=== PATIENT | male | born 1940 | race Caucasian/White ===

== ENCOUNTER 2020-02-06 07:57 | Emergency (ER) | payer OTHER, SELFPAY ==
[2020-02-06 08:00] VITALS: BP 141/80; PULSE 64; RESP 16; TEMP 36; O2SAT 100
--- NOTE | 2020-02-06 08:08 | ED.SKABFB ---
HPI - Skin/Abscess/Foreign Bdy General Chief complaint: Skin/Abscess/Foreign Body Stated complaint: boil on back Time Seen by Provider: 02/06/20 08:04 Source: patient Mode of arrival: Ambulatory Limitations: no limitations History of Present Illness HPI narrative: Patient is an 79-year-old male who presents with boil on his left back. He says it initially started out as a pimple he thinks is been there for about a month's he and his have been trying to get rid of it and poking it with a needle and had any alcohol to it. He says over the last 1 week it has gotten bigger and worse and draining pus. He denies any fever or chills. He has never had anything like this before. MD complaint: abscess/boil Related Data Home Medications Medication Instructions Recorded Confirmed ASPIRIN CHEW - 81 mg PO DAILY #0 02/20/07 (ASPIRIN) Metoprolol Tartrate (Lopressor) 0 PO BID #0 02/20/07 Tamsulosin Hydrochloride (Flomax) 0 mg PO DAILY #0 02/20/07 [ALEVE] BID #0 02/20/07 [PREVACOL] DAILY #0 02/20/07 Previous Rx's Medication Instructions Recorded sulfamethoxazole-trimethoprim 1 tab PO BID #14 tab 02/06/20 [Bactrim DS] Allergies Allergy/AdvReac Type Severity Reaction Status Date / Time No Known Drug Allergies Allergy Verified 02/06/20 08:04 Review of Systems Review of Systems Narrative: GENERAL: Denies chills,fever HEENT: Denies throat pain RESPIRATORY: Denies dyspnea, cough, wheezing CARDIOVASCULAR: Denies chest pain, palpitations GASTROINTESTINAL: Denies nausea, vomiting MUSCULOSKELETAL: Denies extremity pain, injury SKIN: See HPI NEUROLOGIC: Denies weakness, dizziness, headache, numbness 8 point review of systems is negative except for those stated above and HPI Patient History Medical History Coronary artery disease (Acute) Hyperlipidemia (Acute) Hypertension (Acute) Social History Smoking Status: Former smoker Smoking Status: Former smoker alcohol intake frequency: 0-2 drinks per day Substance Use Type: does not use Exam Initial Vital Signs Initial Vital Signs: Vital Signs Temperature 96.8 F L 02/06/20 08:00 Pulse Rate 64 02/06/20 08:00 Respiratory Rate 16 02/06/20 08:00 Blood Pressure 141/80 H 02/06/20 08:00 Pulse Oximetry 100 02/06/20 08:00 GENERAL: Alert pleasant elderly male CARDIOVASCULAR: peripheral pulses in tact, cap refill <2 sec RESPIRATORY: No respiratory distress, speaks in full sentences without difficulty [ABDOMEN: Soft, nontender, no guarding or rebound] EXTREMITIES: Normal range of motion, no clubbing or edema. Neurovascularly intact NEUROLOGICAL: Cranial nerves II through XII grossly intact. Normal gait and speech. SKIN: Abscess 2 cm x 1 cm left back thoracic area. He does have some induration and there is some drainage at the site Procedures Abscess I/D I&D #1: Site: back Side (if applicable): left Local Anesthetic: lidocaine 1% and with epi Amount of anesthesia used (mL): 3 Technique: incised with #11 blade Amount of fluid expressed (mL): 0 Irrigation: No Packing used?: none Complications: pain Course Orders Ordered: ED Orders 02/06/20 08:05 Wound Culture and Gram Stain Stat Discontinued Medications Lidocaine/Epinephrine (Xylocaine 1% W/Epi) 1 ml SUBCUT NOW ONE Stop: 02/06/20 08:08 Last Admin: 02/06/20 08:11 Dose: 1 ml Documented by: BTONER Vital Signs Vital signs: Vital Signs - 8 hr 02/06/20 08:00 Temperature 96.8 F L Pulse Rate 64 Respiratory Rate 16 Blood Pressure 141/80 H Pulse Oximetry 100 MDM - Skin/Abscess/Foreign Bdy MDM Narrative Medical decision making narrative: Unfortunately there was no pus. Bleeding was controlled. Instructed patient about warm compresses keeping it clean and dry and have given a prescription for antibiotic Discharge Plan Departure Patient Disposition: Home Clinical Impression: Abscess of skin Qualifiers: Site of cutaneous abscess: trunk Site of cutaneous abscess of trunk: back Qualified Code(s): L02.212 - Cutaneous abscess of back [any part, except buttock] Discharge Date/Time: 02/06/20 08:40 Instructions: DI for Skin Abscess Activity Restrictions/Additional Instructions: *You have been diagnosed with skin abscess *What to do: Recommend warm compresses keep clean and dry with soap and monitor. This may need to be opened at a later date. However hopefully this clears with antibiotics *Continue to take medications as directed Bactrim 1 tablet twice a day for 7 days *Follow up with your primary care provider in 2-3 days *Return to ER if you should have increasing swelling, increasing drainage, fever or any new, worsening or concerning symptoms Prescriptions: New sulfamethoxazole-trimethoprim [Bactrim DS] 800-160 mg tablet 1 tab PO BID Qty: 14 RF: 0 No Action Metoprolol Tartrate (Lopressor) 0 PO BID Qty: 0 RF: 0 [PREVACOL] DAILY Qty: 0 RF: 0 ASPIRIN CHEW - (ASPIRIN) 81 mg PO DAILY Qty: 0 RF: 0 Tamsulosin Hydrochloride (Flomax) 0 mg PO DAILY Qty: 0 RF: 0 [ALEVE] BID Qty: 0 RF: 0
[2020-02-06] MEDS: LIDOCAINE 1% W/EPI 1 ML SUBCUT (08:11)
== END 2020-02-06 08:40 | disposition home or self-care (01) ==
PROVIDERS: Emergency Provider Emergency Medicine
DX: L02.212 Cutaneous abscess of back [any part, except buttock and flank] (principal)
CPT/HCPCS: 10060; 87070; 87077; 87147; 87186; 87205; 99281; 99283

== ENCOUNTER 2020-02-25 07:29 | Emergency (ER) | payer OTHER, SELFPAY ==
[2020-02-25 07:38] VITALS: BP 146/76; PULSE 55; RESP 16; TEMP 36.2; O2SAT 100; BMI 27.2
--- NOTE | 2020-02-25 07:54 | ED_ITS ---
HPI - Skin/Abscess/Foreign Bdy General Chief complaint: Skin/Abscess/Foreign Body Stated complaint: abcess on back Time Seen by Provider: 02/25/20 07:45 Source: patient Mode of arrival: Ambulatory Limitations: no limitations History of Present Illness HPI narrative: Patient seen here February 06, 2020 for the same complaint of abscess left scapular area. Placed on Bactrim which has helped the pain but still has drainage from the wound. No fever chills. Has not expanded in size of the wound. Patient uncertain tetanus status. Will give here. Changing antibiotic to doxycycline. Will give referral to General surgery for follow-up. Related Data Home Medications Medication Instructions Recorded Confirmed ASPIRIN CHEW - 81 mg PO DAILY #0 02/20/07 (ASPIRIN) Metoprolol Tartrate (Lopressor) 0 PO BID #0 02/20/07 Tamsulosin Hydrochloride (Flomax) 0 mg PO DAILY #0 02/20/07 [ALEVE] BID #0 02/20/07 [PREVACOL] DAILY #0 02/20/07 Previous Rx's Medication Instructions Recorded sulfamethoxazole-trimethoprim 1 tab PO BID #14 tab 02/06/20 [Bactrim DS] doxycycline monohydrate 100 mg PO BID #20 cap 02/25/20 Allergies Allergy/AdvReac Type Severity Reaction Status Date / Time No Known Drug Allergies Allergy Verified 02/06/20 08:04 Review of Systems Review of Systems Narrative: GENERAL: Denies chills, fatigue, malaise, fever, sweats. MUSCULOSKELETAL: denies weakness, joint pain, or bony pain SKIN: Denies rash, complains of abscess left scapular area. NEUROLOGIC: Denies weakness, headache, numbness, change in speech, confusion, seizures, incoordination. PSYCHIATRIC: No concerning psychosocial issues. ROS Unobtainable: All systems reviewed & are unremarkable except as noted in HPI and below Patient History Medical History Coronary artery disease (Acute) Hyperlipidemia (Acute) Hypertension (Acute) Social History Smoking Status: Former smoker Smoking Status: Former smoker alcohol intake frequency: 0-2 drinks per day Substance Use Type: does not use Exam Narrative Exam Narrative: GENERAL: patient appears stated age. Well-nourished, well- developed patient, in no distress, not toxic HEAD: Atraumatic. Normocephalic. BACK: Nontender without deformity or crepitance. No flank tenderness. NEURO: AOx3. SKIN: Examination of abscess located left scapular area. 3 cm in diameter central drainage of small amount of pus. Thick. No bleeding. No lymphangitis. Nontender. PSYCH: Not anxious, is cooperative Initial Vital Signs Initial Vital Signs: Vital Signs Temperature 97.2 F L 02/25/20 07:38 Pulse Rate 55 L 02/25/20 07:38 Respiratory Rate 16 02/25/20 07:38 Blood Pressure 146/76 H 02/25/20 07:38 Pulse Oximetry 100 02/25/20 07:38 Course Orders Ordered: Discontinued Medications Diphtheria/Tetanus/Acell Pertussis (Adacel) 0.5 ml IM .ONCE ONE Stop: 02/25/20 07:49 Last Admin: 02/25/20 08:05 Dose: 0.5 ml Documented by: CAREN Doxycycline Hyclate (Vibramycin) 100 mg PO NOW ONE Stop: 02/25/20 07:51 Last Admin: 02/25/20 08:05 Dose: 100 mg Documented by: BTONER Vital Signs Vital signs: Vital Signs - 8 hr 02/25/20 07:38 Temperature 97.2 F L Pulse Rate 55 L Respiratory Rate 16 Blood Pressure 146/76 H Pulse Oximetry 100 MDM - Skin/Abscess/Foreign Bdy MDM Narrative Medical decision making narrative: No indication to contacts general surgery at this time. Patient can call this morning to make appointment. Lesion ongoing for many weeks. Not toxic. May need debridement outpatient basis Discharge Plan Departure Patient Disposition: Home Clinical Impression: Abscess of skin or subcutaneous tissue Qualifiers: Site of cutaneous abscess: trunk Site of cutaneous abscess of trunk: back Qualified Code(s): L02.212 - Cutaneous abscess of back [any part, except buttock] Discharge Date/Time: 02/25/20 08:24 Instructions: DI for Skin Abscess Activity Restrictions/Additional Instructions: Called provided general surgeon today for office recheck this week and abscess evaluation. You may need debridement of the wound but 1st need to see a general surgeon. Return if worse or if any questions or concerns Prescriptions: New doxycycline monohydrate 100 mg capsule 100 mg PO BID Qty: 20 RF: 0 No Action Metoprolol Tartrate (Lopressor) 0 PO BID Qty: 0 RF: 0 [PREVACOL] DAILY Qty: 0 RF: 0 ASPIRIN CHEW - (ASPIRIN) 81 mg PO DAILY Qty: 0 RF: 0 Tamsulosin Hydrochloride (Flomax) 0 mg PO DAILY Qty: 0 RF: 0 [ALEVE] BID Qty: 0 RF: 0 sulfamethoxazole-trimethoprim [Bactrim DS] 800-160 mg tablet 1 tab PO BID Qty: 14 RF: 0 Referrals: Pro Romo MD [Physician] -
[2020-02-25] MEDS: TET,DIPH,PERTUSS(ACELL),VAC/PF 0.5 ML SYRINGE IM (08:05)
[2020-02-25] MEDS: DOXYCYCLINE HYCLATE 100 MG TABLET PO (08:05)
[2020-02-25 08:24] VITALS: BP 111/67; PULSE 55; RESP 18; O2SAT 100
== END 2020-02-25 08:24 | disposition home or self-care (01) ==
PROVIDERS: Emergency Provider Emergency Medicine
DX: L02.212 Cutaneous abscess of back [any part, except buttock and flank] (principal); Z23 Encounter for immunization
CPT/HCPCS: 87070; 87077; 87147; 87186; 87205; 90471; 99283; 90715

== ENCOUNTER 2020-10-09 10:04 | Emergency (ER) | payer OTHER, SELFPAY ==
[2020-10-09 10:10] VITALS: BP 172/79; PULSE 62; RESP 15; TEMP 36.8; O2SAT 98; BMI 27.9
--- NOTE | 2020-10-09 13:12 | ED_ITS ---
HPI - Skin/Abscess/Foreign Bdy <ANA Albert - Last Filed: 10/09/20 13:26> General Chief complaint: Skin/Abscess/Foreign Body Stated complaint: right side abd abscess x7 day Time Seen by Provider: 10/09/20 12:52 Source: patient Mode of arrival: Ambulatory Limitations: no limitations History of Present Illness HPI narrative: This is a 79-year-old male, former smoker, who has past medical history significant for hypertension, BPH and MRSA skin infection and abscess formation presents to ED with chief complain of right lower abdominal skin lesion which concerns him for another abscess formation. Patient states noticed about a 1 week ago discomfort in waist band area from hands and underwear and noticed redness. Patient reports actually the skin lesion redness and pain is s lightly improved at this time. Similar thing happen on his back last year summer and had drained and took antibiotic medication. At that time on Bactrim DS without much improved and return to ED and changed antibiotic medication to doxycycline which resolved his symptoms. Patient denies fever, chills, nausea, vomiting, drainage from the site. Patient was evaluated by his urologist yesterday and recommended to be evaluated for this problem. Related Data Home Medications Medication Instructions Recorded Confirmed ASPIRIN CHEW - 81 mg PO DAILY #0 02/20/07 (ASPIRIN) Metoprolol Tartrate (Lopressor) 0 PO BID #0 02/20/07 Tamsulosin Hydrochloride (Flomax) 0 mg PO DAILY #0 02/20/07 [ALEVE] BID #0 02/20/07 [PREVACOL] DAILY #0 02/20/07 Previous Rx's Medication Instructions Recorded sulfamethoxazole-trimethoprim 1 tab PO BID #14 tab 02/06/20 [Bactrim DS] doxycycline monohydrate 100 mg PO BID #20 cap 02/25/20 doxycycline monohydrate 100 mg PO BID 7 Days #14 cap 10/09/20 Allergies Allergy/AdvReac Type Severity Reaction Status Date / Time No Known Drug Allergies Allergy Verified 10/09/20 10:11 Review of Systems <ANA Albert - Last Filed: 10/09/20 13:26> Review of Systems Narrative: General: Denies fever, chills, fatigue, malaise, sweats. Respiratory: Denies dyspnea, cough, wheezing, hemoptysis, sputum. Cardiovascular: Denies chest pain, palpitations, orthopnea, edema. Gastrointestinal: Denies nausea, vomiting, abdominal pain, diarrhea, constipation, melena. Skin: See HPI Patient History <ANA Albert - Last Filed: 10/09/20 13:26> Medical History (Updated 10/09/20 @ 13:19 by ANA Albert) Coronary artery disease Hyperlipidemia Hypertension Social History Smoking Status: Former smoker Smoking Status: Former smoker alcohol intake frequency: holidays/special occasions only Substance Use Type: does not use Exam <ANA Albert - Last Filed: 10/09/20 13:26> Narrative Exam Narrative: General appearance: well developed, well nourished, in no acute distress. Head: normocephalic, atraumatic, no scalp lesions, non-tender. ENT: Hearing grossly intact. Airway patent. Neck/Thyroid: neck supple, full range of motion, no visible masses or meningeal signs. No JVD, non-tender without lymphadenopathy. Skin: 4.5 x 9.5 cm indurated erythematous and tender to palpate skin lesion with two dark spots in the middle of the lesion. Warm to touch. No drainage. No soft fluctuation. Warm and dry and appropriate color for ethnicity. Heart: no clubbing, no cyanosis, no edema. Lungs: Breathing even and unlabored. No stridor. No accessory muscles used. Able to speak in full sentences. Chest: normal shape and expansion. Abdomen: non-obese, non-distended. Neurologic: alert and oriented. Cognitive exam, DIRECTOR STARS and PNS grossly intact on informal exam. Psych: good eye contact, normal affect. Initial Vital Signs Initial Vital Signs: Vital Signs Temperature 98.3 F 10/09/20 10:10 Pulse Rate 62 10/09/20 10:10 Respiratory Rate 15 10/09/20 10:10 Blood Pressure 172/79 H 10/09/20 10:10 Pulse Oximetry 98 10/09/20 10:10 <Pepper Le MD - Last Filed: 10/09/20 18:36> Initial Vital Signs Initial Vital Signs: Vital Signs Temperature 98.3 F 03/25/21 10:10 Pulse Rate 62 10/09/20 10:10 Respiratory Rate 15 10/09/20 10:10 Blood Pressure 172/79 H 10/09/20 10:10 Pulse Oximetry 98 10/09/20 10:10 Scores <Juan Miguel HightowerAmadaDanielANA troncoso - Last Filed: 10/09/20 13:26> GCS Aleksandr coma scale eye opening: Spontaneous Grubbs coma scale verbal response: Orientated Grubbs coma scale motor response: Obey commands Grubbs coma scale total score: 15 qSOFA Altered Mental Status (GCS <15): No Respiratory rate greater than/equal to 22: No Systolic blood pressure less than or equal to 100: No qSOFA Total: 0 0-1 Not High Risk 1-3 High risk Course <Juan Miguel RasmayANA troncoso - Last Filed: 10/09/20 13:26> Vital Signs Vital signs: Vital Signs - 8 hr 10/09/20 13:30 Pulse Rate 62 Blood Pressure 181/85 H Pulse Oximetry 97 <Pepper Le MD - Last Filed: 10/09/20 18:36> Vital Signs Vital signs: Vital Signs - 8 hr 10/09/20 13:30 Pulse Rate 62 Blood Pressure 181/85 H Pulse Oximetry 97 MDM - Skin/Abscess/Foreign Bdy <Juan Miguel GreenrumaDanielANA troncoso - Last Filed: 10/09/20 13:26> Differential Diagnosis Differential diagnosis: Likely abscess of skin or subcutaneous tissue, cellulitis and other (MRSA) Medical Records Attestation: I reviewed the patient's medical records. MDM Narrative Medical decision making narrative: Bedside US test done by Dr. Le which does not indicates a big abscess formation at this time. Physical exam consistent with cellulitis likely from ingrown hair in abdomen. Patient does not have constitutional symptoms. Affected site marked with skin hand for patient's to monitor after he starts antibiotic medication. Previous wound culture shows sensitivity to doxycycline which patient had good results last year when he had similar skin lesions. Patient advise warm pack to use and [id number] Tylenol and or Motrin uses for pain management. Advised to follow-up with PCP for wound recheck in 2-3 days and return precautions discussed with patient which she verbalized understanding in agreement with the treatment plan. Discharge Plan Departure Patient Disposition: Home Clinical Impression: Cellulitis Qualifiers: Site of cellulitis: other site Qualified Code(s): L03.818 - Cellulitis of other sites Instructions: DI for Cellulitis -- Adult Activity Restrictions/Additional Instructions: You have been diagnosed with [cellulitis of right abdomen and likely early abscess formation]. What to do: *Take your medications as directed. Please start on doxycycline twice a day for next 7 days. Doxycycline can cause some sensitivity to please take precautions. Drink lots of water when her taking this medications. You can take Tylenol and or Motrin as needed for discomfort. Please use warm pack on affected for up to 3 to 4 times a day for 30 minutes next several days. Doxycycline has been transmitted to [facility]. *Follow up with your primary care provider in 2-3 days, call for an appointment. Let them know you were seen in the ED and that we asked you to be seen in follow up. Please monitor increasing redness, warmth, fever, pain. The affected site was marked with skin pen. *Return to ED if you have any new, worsening, or concerning symptoms, such as [signs and symptoms of above, chest pain, breathing difficulty, unable to tolerate fluids, or any acute concerns]. Prescriptions: New doxycycline monohydrate 100 mg capsule 100 mg PO BID 7 Days Qty: 14 RF: 0 No Action Metoprolol Tartrate (Lopressor) 0 PO BID Qty: 0 RF: 0 [PREVACOL] DAILY Qty: 0 RF: 0 ASPIRIN CHEW - (ASPIRIN) 81 mg PO DAILY Qty: 0 RF: 0 Tamsulosin Hydrochloride (Flomax) 0 mg PO DAILY Qty: 0 RF: 0 [ALEVE] BID Qty: 0 RF: 0 doxycycline monohydrate 100 mg capsule 100 mg PO BID Qty: 20 RF: 0 sulfamethoxazole-trimethoprim [Bactrim DS] 800-160 mg tablet 1 tab PO BID Qty: 14 RF: 0 Referrals: Dimitri Hutchinson MD [Primary Care Provider] - <Pepper Le MD - Last Filed: 10/09/20 18:36> Cosign ED Attending Carolineature Attestation: I was immediately available in the department for consultation throughout this patient's visit. I agree with documentation as above. Pepper Le MD
[2020-10-09 13:30] VITALS: BP 181/85; PULSE 62; O2SAT 97
== END 2020-10-09 13:31 | disposition home or self-care (01) ==
PROVIDERS: Emergency Provider Nurse Practitioner Family; PCP Family Medicine
DX: L03.818 Cellulitis of other sites (principal)
CPT/HCPCS: 99281